=== PATIENT | female | born 1940 | race Caucasian/White ===

== ENCOUNTER 2019-01-29 09:31 | Emergency (ER) | payer MEDICARE ==
[2019-01-29 10:15] VITALS: BP 178/75
--- NOTE | 2019-01-29 10:32 | UC ---
Skin Complaint HPI - HPI Summary HPI Summary: 79 -year-old female who did a lot of yard work on , 2 days ago, she had sore muscles so she applied some ointment to her back and then took a warm shower. She states the ointment started burning so she took another shower to wash it off and thinks she burned herself with the hot water. - History of Current Complaint Chief Complaint: UCBurn Time Seen by Provider: 01/29/19 10:08 Stated Complaint: SKIN CONCERN (BURN) Hx Obtained From: Patient ?: No Onset/Duration: Gradual Onset Skin Exposure Onset/Duration: Worse Since: - 2 days ago when she took a warm shower. Timing: Constant Onset Severity: Moderate Current Severity: Moderate Pain Intensity: 6 Location: Diffuse, Other - Right side of upper back extending around her right axilla and right breast. Character: Redness, Raised, Painful - Burning on sensation. Aggravating Factor(s): Showering Alleviating Factor(s): Nothing Associated Signs & Symptoms: Positive: Nausea, Rash, Tenderness - Allergy/Home Medications Allergies/Adverse Reactions: Allergies Allergy/AdvReac Type Severity Reaction Status Date / Time No Known Allergies Allergy Verified 01/29/19 10:15 Home Medications: Home Medications Aspirin 81 mg PO DAILY 01/29/19 [History Confirmed 01/29/19] Atenolol 25 mg PO DAILY 01/29/19 [History Confirmed 01/29/19] Atorvastatin* [Lipitor*] 40 mg PO 1700 01/29/19 [History Confirmed 01/29/19] PMH/Surg Hx/FS Hx/Imm Hx - Additional Past Medical History Additional PMH: Patient states she has had one shingles immunization. Previously Healthy: Yes - Surgical History Surgical History: Yes Surgery Procedure, Year, and Place: bunions, retinal detachment - Family History Known Family History: Positive: Non-Contributory - Social History Occupation: Retired Alcohol Use: None Substance Use Type: None Smoking Status (MU): Former Smoker Review of Systems All Other Systems Reviewed And Are Negative: Yes Skin: Positive: Rash - Rash right upper back extending around the right axilla and right breast. Is Patient Immunocompromised?: No Physical Exam Triage Information Reviewed: Yes Appearance: Well-Appearing, No Pain Distress, Well-Nourished Vital Signs: Initial Vital Signs Temp 98.2 F 01/29/19 10:06 Pulse 60 01/29/19 10:06 Resp 16 01/29/19 10:06 BP 178/75 01/29/19 10:06 Pulse Ox 100 01/29/19 10:06 Vital Signs Reviewed: Yes Respiratory: Positive: Lungs clear, Normal breath sounds, No respiratory distress, No accessory muscle use Cardiovascular: Positive: RRR, No Murmur, Pulses Normal, Brisk Capillary Refill Musculoskeletal Exam: Normal Neurological Exam: Normal Psychological Exam: Normal Skin: Positive: Rashes, Other - Rash right upper back extending around right axilla to right breast following the dermatome. Raised, herpetic in appearance , with a red base, no active drainage. Course/Dx - Course Course Of Treatment: Pt comfortable here. Will treay with Valtrex since she is within 2 days of symptom onset. - Diagnoses Provider Diagnosis: Shingles Discharge - Sign-Out/Discharge Documenting (check all that apply): Patient Departure All imaging exams completed and their final reports reviewed: No Studies - Discharge Plan Condition: Fair Disposition: HOME Prescriptions: ValACYclovir (*) [Valtrex 1 GM(*)] 1 gm PO TID 7 Days #21 tab Patient Education Materials: Shingles (ED) Referrals: Sandy Fowler MD [Primary Care Provider] - Additional Instructions: Do not apply anything to the rash. May take Tylenol or extra strength Tylenol for pain. Follow-up with your primary care provider later in the week if no improvement. Anyone who has not had chickenpox in their lifetime should not be exposed to the rash. - Billing Disposition and Condition Condition: FAIR Disposition: Home - Attestation Statements Provider Attestation: Per institutional requirements, I have reviewed the chart, however, I was not consulted specifically or made aware of this patient by the midlevel provider. I did not personally evaluate, interact with , or disposition this patient.
== END 2019-01-29 10:35 | disposition home or self-care (01) ==
LOC: UCCORT 09:31
DX: B02.9 Zoster without complications (principal); Z88.8 Allergy status to other drugs, medicaments and biological substances; Z87.891 Personal history of nicotine dependence
CPT/HCPCS: 99202; G0463